=== PATIENT | female | born 1985 | race Two or more races ===

== ENCOUNTER 2020-01-12 18:23 | Emergency (ER) | payer SELFPAY ==
[~2020-01-12] VITALS: Ht 157.5 cm; Wt 109.8 kg
[2020-01-12] MEDS ORDERED: VALACYCLOVIR HCL 500MG TABLET PO STA (18:49)
[2020-01-12] MEDS ORDERED: PREDNISONE 20MG TABLET PO ONE (19:00)
[2020-01-12 20:40] VITALS: BP 115/62
== END 2020-01-12 21:11 | disposition home or self-care (01) ==
LOC: ER 18:23
DX: G51.0 Bell's palsy (principal); R03.0 Elevated blood-pressure reading, without diagnosis of hypertension
CPT/HCPCS: 81025; 82962; 93005; 99283; J7512